=== PATIENT | female | born 1995 | race Caucasian/White ===

== ENCOUNTER → 2022-11-22 | Outpatient (CLI) | payer BC ==
--- NOTE | 2022-11-22 15:24 | Diagnostic Imaging Report ---
PROCEDURE: CT abdomen and pelvis without contrast. TECHNIQUE: Multiple contiguous axial images were obtained through the abdomen and pelvis without the use of intravenous contrast. Auto Exposure Controls were utilized during the CT exam to meet ALARA standards for radiation dose reduction. INDICATION: Right lower quadrant pain. Nausea and vomiting. COMPARISON: None. FINDINGS: The heart is unremarkable. The lung bases are clear. There is hepatic steatosis. The gallbladder is nondistended. The spleen, pancreas, adrenal glands, and kidneys have a normal appearance. There is no pathologically enlarged mesenteric or retroperitoneal adenopathy. The bowel loops are nondilated. The appendix is visualized in the right lower quadrant and has a normal appearance. There is no free fluid or free air. No acute osseous abnormalities. Ureters and bladder are normal. Dominant follicle/cyst is seen in the right adnexa. There is no free air, loculated collection, or adenopathy in the pelvis. IMPRESSION: 1. No evidence of bowel obstruction. Normal appendix. No free fluid or free air. 2. Hepatic steatosis. 3. Dominant follicle/cyst in the right adnexa. Dictated by: Dictated on workstation # [id number]
--- NOTE | 2022-11-22 17:42 | Diagnostic Imaging Report ---
PROCEDURE: US Non-ob pelvis comp/trans. TECHNIQUE: Multiple realtime grayscale images were obtained of the pelvis in various projections endovaginally. Transabdominal imaging was also performed. INDICATION: Right lower quadrant pain COMPARISON: CT of the abdomen and pelvis 11/22/2022 FINDINGS: The uterus measures 8.7 x 4.5 x 5.0 cm and is anteverted. No uterine mass. Normal endometrium measuring 0.9 cm. Right ovary measures 4.4 x 3.2 x 3.8 cm and demonstrates a cyst measuring 3.7 cm with internal echogenicity. The left ovary measures 3.2 x 2.0 x 2.2 cm and demonstrates a few follicles. Normal vascularity within both ovaries. No free fluid within the pelvis. Impression: 3.7 cm hemorrhagic cyst within the right ovary. No free fluid. No evidence of ovarian torsion. Dictated by: Dictated on workstation # [id number]
--- NOTE | 2022-11-22 18:25 | Diagnostic Imaging Report ---
INDICATION: PROCEDURE: Ultrasound abdomen complete. TECHNIQUE: Multiple real-time grayscale images were obtained of the abdomen in various projections. COMPARISON: CT of the abdomen and pelvis from today. FINDINGS: Enlarged liver measuring 21 cm. The liver parenchyma is diffusely hyperechoic. The common bile duct is 0.4 cm. The gallbladder is normal. The pancreas is not well seen due to overlying bowel gas. The spleen is normal measuring 10 cm. Aorta and IVC are normal. The kidneys are normal. No ascites. No Jorge sign. IMPRESSION: Hepatic steatosis. Normal appearing gallbladder. Dictated by: Dictated on workstation # [id number]
== END ==
LOC: RAD 14:48
PROVIDERS: ATTEND Nurse Practitioner Family
DX: K76.0 Fatty (change of) liver, not elsewhere classified (principal); N83.201 Unspecified ovarian cyst, right side; D72.828 Other elevated white blood cell count; E86.0 Dehydration
CPT/HCPCS: 74176; 76700; 76830; 76856